=== PATIENT | female | born 1955 | race Caucasian/White ===

== ENCOUNTER 2025-05-12 09:14 | Day surgery (SDC) | payer MEDICARE, SELFPAY ==
[2025-05-08 15:00] VITALS: BMI 26.6
--- OUTSIDE RECORDS SUMMARY | 2025-05-11 19:33 | XMS_ITS | Patient Health Record ---
Author Organization [facility] Address [address] [place] [id number] Care Team Providers Care Medical Customer Service Representative Name Role Phone Ivy Jefferson M.D. Primary Care Provider Donte Mosqueda Jr Unavailable Allergies Allergen (clinical drug ingredient) Drug/Non Drug Allergy documented on EMR Reaction Allergy Type Onset Date Status seasonal (uncoded) Unknown Allergy A ctive Reason For Referral No Information Medications Medication SIG (Take, Route, Frequency, Duration) Notes Start Date End Date Status Simvastatin 10 MG 2 tablets in the evening Orally Once a day Active Multi Vitamin Daily Active hydroCHLOROthiazide 12.5 MG 1 capsule in the morning Orally Once a day Active Amoxicillin 500 MG 4 capsules Orally Prophylaxis for dental procedures Active Fluticasone Propionate 50 MCG/ACT 1 spray in each nostril Nasally Twice a day Active Magnesium 400 MG as directed Orally Active Vitamin D3 25 MCG (1000 UT) 1 tablet Ora lly Once a day Active Omeprazole 20 MG 1 capsule 1/2 to 1 hour before morning meal Orally Once a day Active amLODIPine Besylate 10 MG 1 tablet Orall y Once a day Active Immunizations Vaccine Route Administration Date Status Comme nts Influenza Unknown 05/13/2024 Administered Social History Tobacco Use: Social History Observation Description Date Details (start date - stop date) Never Smoker NA - NA Tobacco Control (Standard) Question Answer Notes Tobacco use: Nonsmoker AUDIT-C (Standard) Question Answer Notes Did you have a drink containing alcohol in the p ast year? No Points 0 Interpretation Negative Problems Problem Type SNOMED Code ICD Code Onset Dates Problem Status W/U Status Risk Notes Problem Colon cancer screening (839190193) Colon cancer screening (Z12.11) Active confirmed Problem Dysphagia (93453381) Dysphagia (R13.10) Active confirmed Problem Gastroesophageal reflux disease (058034105) Gastroesophageal reflux disease (K21.9) Active confirmed Problem Family history of polyp of colon (situation) (180534526) Family history of colon polyps, unspecified (Z83.719) Active confirmed Vital Signs Blood pressure diastolic 01 mm Hg 04/22/2025 Height 63 in 04/22/2025 Blood pressure systolic 001 mm Hg 04/22/2025 Weight 150 lbs 04/22/2025 BMI 26.57 kg/m2 04/22/2025 Encounters Encounter Location Date Provider Diagnosis [facility] [address] [place] [address] 10/10/2024 Donte Maloney Jr [facility] [address] [place] [phone] 04/22/2025 Donte Maloney Jr Dysphagia R13.10 ; Gastroesophageal reflux disease K21.9 ; Family history of colon polyps, unspecified Z83.719 and Colon cancer screening Z12.11 Assessments Encounter Date Diagnosis (ICD Code) Assessment Notes Treatment Notes Treatment Clinical Notes Section Notes 04/22/2025 Dysphagia (ICD-10 - R13.10) We discussed her symptoms today. We discussed gastroesophageal reflux disease. We discussed dysphagia. Some of her symptoms could be related to esophageal dysmotility since they have not been progressive. We recommended further evaluation with upper endoscopy because of her persistent symptoms despite omeprazole. She is due for screening colonoscopy and this will be arranged. We discussed risks and benefits of both procedures today. She understands and agrees to proceed. She is advised to stop hydrochlorothiazide the day before the procedure. 04/22/2025 Gastroesophageal reflux disease (ICD-10 - K21.9) We discussed her symptoms today. We discussed gastroesophageal reflux disease. We discussed dysphagia. Some of her symptoms could be related to esophageal dysmotility since they have not been progressive. We recommended further evaluation with upper endoscopy because of her persistent symptoms despite omeprazole. She is due for screening colonoscopy and this will be arranged. We discussed risks and benefits of both procedures today. She understands and agrees to proceed. She is advised to stop hydrochlorothiazide the day before the procedure. 04/22/2025 Family history of colon polyps, unspecified (ICD-10 - Z83.719) We discussed her symptoms today. We discussed gastroesophageal reflux disease. We discussed dysphagia. Some of her symptoms could be related to esophageal dysmotility since they have not been progressive. We recommended further evaluation with upper endoscopy because of her persistent symptoms despite omeprazole. She is due for screening colonoscopy and this will be arranged. We discussed risks and benefits of both procedures today. She understands and agrees to proceed. She is advised to stop hydrochlorothiazide the day before the procedure. 04/22/2025 Colon cancer screening (ICD-10 - Z12.11) We discussed her symptoms today. We discussed gastroesophageal reflux disease. We discussed dysphagia. Some of her symptoms could be related to esophageal dysmotility since they have not been progressive. We recommended further evaluation with upper endoscopy because of her persistent symptoms despite omeprazole. She is due for screening colonoscopy and this will be arranged. We discussed risks and benefits of both procedures today. She understands and agrees to proceed. She is advised to stop hydrochlorothiazide the day before the procedure. Plan Of Treatment Future Test Test Name Order Date UPPER GI ENDOSCOPY 04/22/2025 COLONOSCOPY 04/22/2025 Next Appt Details Provider Name:Donet gasca , 05/12/2025 12:00:00 PM, [address] [place] [address], [phone], Insurance Providers Payer Name Payer Address Payer Phone Subscriber Number Group Number Insured Name Patient Relationship to Insured Coverage Start Date Coverage End Date [facility] [address] [place], [place] [id number] Self - patient is the insured Medical (General) History Medical History History ICD Code Hypertension Hyperlipidemia Seasonal allergic rhinitis Gastroesophageal reflux disease Colonoscopy 2019 negative pe r patient, 5-year follow-up for family history of colon polyps Surgical History Surgery Date(Month/Year) cataracts x 2 partial removal of cervix bladder sling Laparoscopic cholecystectomy Left TKR
--- OUTSIDE RECORDS SUMMARY | 2025-05-11 19:33 | XMS_ITS | Clinical Summary ---
Author Organization [facility] Address [address] [place] [address] Care Team Providers Care Armature Varnisher Name Role Phone Ivy Jefferson MD Primary Care Provider [phone] Allergies No known active allergies Medications * This document contains information received from the source organization and may not represent a complete record from that organization. multivitamin capsule Take 1 capsule by mouth once a day. Active cholecalciferol 400 unit tablet Take 400 Units by mouth once a day. 023 Active amoxicillin (AMOXIL) 500 mg capsule Amoxicillin 2 gm prior to dental procedure 60 capsule 023 Active magnesium oxide 400 mg magnesium capsule Take 400 mg by mouth once a day. Every other day take one pill Active polyethylene glycol 3350 (MIRALAX) powder Take 17 g by mouth daily as needed for constipation. Mix powder in 4 to 8 oz of water, juice, coffee, or tea. 510 g 4 5:33 PM EDT 024 Active hydroCHLOROthiazide 12.5 mg tabletIndications:Essen tial (primary) hypertension Take 1 tablet (12.5 mg total) by mouth once a day. 90 tablet 3 024 Active omeprazole (PriLOSEC) 20 mg capsule TAKE 1 CAPSULE ONCE DAILY 90 capsule 3 025 Active amLODIPine-benazepriL (LOTREL) 10-40 mg per capsule TAKE 1 CAPSULE EVERY MORNING 90 capsule 3 025 Active fluticasone propionate (FLONASE) 50 mcg/actuation nasal spray USE 1 SPRAY IN EACH NOSTRILONCE DAILY 48 g 1 025 Active simvastatin (ZOCOR) 20 mg tabletIndications:Pure hypercholesterolemia Take 1 tablet (20 mg total) by mouth nightly. 90 tablet 3 025 2025 Active estradioL (ESTRACE) 0.01 % (0.1 mg/gram) vaginal creamIndications:Recurr ent UTI APPLY A PEA-SIZED AMOUNT INTO THE VAGINA 2 TIMES A WEEK 42.5 g 025 Active Active Problems Problem Noted Date Diagnosed Date Recurrent UTI 02/14/2024 Assessment & Plan (02/16/2025 9:20 AM EDT): 69-year-old 4 para 2-0-2-2 with history of recurrent UTIs. Since starting the vaginal estrogen, she has had no UTIs. Use of vaginal estrogen cream, insert pea-sized amount into the vagina twice weekly was reviewed. Refill sent to her pharmacy. Osteopenia 08/25/2020 Assessment & Plan (02/16/2025 9:20 AM EDT): DEXA study from 03/11/2024 showed a T-score of -0.4 at L1-L4 -2.1 in the femoral neck. DEXA will be repeated next year. Assessment & Plan (11/29/2020 9:13 AM EDT): Patient initially diagnosed with osteopenia In DEXA done in July 2018 with osteopenia of both femoral necks. Repeat DEXA scan on 11/22/2020 showed osteopenia without elevated fracture risk. Recommended to continue with daily calcium and vitamin D tablets for minimum of 1200 mg calcium and 800 units of vitamin D per day. Weightbearing exercise recommended. Assessment & Plan (08/25/2020 1:32 PM EST): DEXA 08/21/18: Osteopenia. Normal bone density of lumbar spine, osteopenia of both femoral necks. Repeat DEXA scan ordered. She is currently on calcium/D3 supplement. S/P rhinoplasty 11/27/2019 H/O total knee replacement, left 09/09/2019 Overview (09/09/2019): Uses amoxicillin 500 mg 4 tabs before dental procedures. Constipation 09/09/2019 Assessment & Plan (09/09/2019 12:57 PM EST): Uses Colace 200 mg daily regularly and MiraLAX at night as needed. Symptoms are controlled. Cataract cortical, senile 11/13/2013 Overview (09/09/2019): F/u w ophthalmology yearly, last in Mar 2019. Dr. Thompson Allergic rhinitis 09/26/2012 Overview (09/09/2019): Allergic to cat, dogs, and dust mites. Flonase PRN Hypertension 09/26/2012 Assessment & Plan (11/29/2020 9:15 AM EDT): Patient with history of blood pressure that was initially diagnosed in 1998. She is currently on amlodipine-benazepril 10-40 mg daily and HCTZ 12.5 mg daily. No dizziness. Her blood pressure is well controlled at 130/72. She has a sleep apnea and has been using oral appliances instead of CPAP machine recently which has improved her compliance and seems like has helped with her blood pressure control as well. Assessment & Plan (08/25/2020 1:29 PM EST): History of hypertension, blood pressure is currently well controlled on amlodipine 10-benazepril 40 and HCTZ 12.5 mg daily. Dizziness has resolved after reduction in HCTZ from 25 to 12.5 mg daily. Her blood pressure in the office was mildly elevated at 142/75 today but home blood pressure readings are all ranging in 100 110s over 50s to 70s. Possibly elevated blood pressure in the office versus sepsis related/whitecoat syndrome. We will repeat a BMP today. Follow-up in 6 months. Assessment & Plan (05/26/2020 11:16 AM EDT): HCTZ was discontinued on 04/28/2020 due to some episodes of lightheadedness and low blood pressures in 100-1 110s. Lightheadedness has improved. His home blood pressure readings are currently mildly elevated in 130-140s over 70s to 80s. We will continue amlodipine 10, benazepril 40 and will resume hydrochlorothiazide at a lower dose at 12.5 mg daily. Assessment & Plan (01/22/2020 9:07 AM EDT): On amlodipine 10, benazepril/HCTZ 40/25. Has tolerated the medication well without side effects. Blood pressure is ranging in 110-120s over 60-low 80s at max. We will check a BUN/creatinine for her. Recommend to continue monitoring her blood pressures at home frequently. Follow-up with her physical. Continue with same meds, low- salt diet and exercise. Assessment & Plan (10/23/2019 9:44 AM EST): BMP done on 10/20/2019 was unremarkable. Her blood pressures at home ranging in 120-130s over 70 to 80s mostly. There was a couple of readings of 110 and 140s overall. She has tolerated HCTZ well. She is currently taking amlodipine 10/benazepril 40 and hydrochlorothiazide 25 mg daily. Reports infrequent lightheadedness that happens once a day and does not last more than a few seconds. However, she is not sure if it is related to the change in blood pressure or because of the motion sickness since she was experiencing it in the car yesterday and also she has some sinus issues ongoing at this point that might contributed to the lightheadedness. Recommend to continue checking her blood pressures at home twice a day 2 days a week. Also recommended to inform us if experiences frequent lightheadedness episodes. Assessment & Plan (09/24/2019 8:59 AM EST): She has responded well to hydrochlorothiazide 12.5 mg daily without significant problems with urination. She is happy about the results. Her blood pressure at home ranges in 120-140s (150 in one reading) sys and 60 to 80s diastolic. Her blood pressure in the office today is 140/72. BMP is within normal limits. We discussed that we will increase the calculated to 25 mg daily and will continue with same dose of amlodipine benazepril. Repeat BMP in 4 weeks with follow-up visit. Patient is recommended to continue tracking her blood pressures at home. Assessment & Plan (09/09/2019 11:43 AM EST): Patient has elevated blood pressure in 150/80 in this visit and it seems like she had elevated blood pressure in her previous visits with ENT in 140-160s over 80s. She reports that she has had a hard time controlling her blood pressure in the past as well and her blood pressure medication dose was increased by safety administrator a few months ago. She is currently on amlodipine 10/benazepril 40. We Discussed trying a low-dose of diuretic and started her on HCTZ 12.5 mg daily. Patient is commended to monitor her blood pressures at home twice daily, right before the next scheduled dose and at night and document and we will follow-up with her blood pressure control in 2 weeks. BMP to be done 3 days prior to the visit. Esophageal reflux 09/26/2012 Overview (09/09/2019): EGD: gastritis, follows with GI, Dr. Maloney at [facility], on prilosec, sx controlled. Hyperlipidemia 09/26/2012 Assessment & Plan (11/29/2020 9:14 AM EDT): Jul 2020: The 10-year ASCVD risk score ([place] Jr., et al., 2013) is: 10.7% Values used to calculate the score: Age: 65 years Sex: Female Is Non- : No Diabetic: No Tobacco smoker: No Systolic Blood Pressure: 142 mmHg Is BP treated: Yes HDL Cholesterol: 69 mg/dL Total Cholesterol: 213 mg/dL Patient was a started on simvastatin 20 mg at night for elevated ASCVD risk greater than 10%. She has tolerated the medication without side effects. Repeat lipid panel prior to visit shows good cholesterol control. Plan to continue the same dose. Assessment & Plan (08/25/2020 1:28 PM EST): Patient with history of hyperlipidemia, not on any statins. We will repeat a fasting lipid profile. Patient will come back to the lab after 10-12 hours of fasting overnight. Obstructive sleep apnea 09/26/2012 Overview (09/09/2019): Central & obstructive, on CPAP. Used to follow-up with neurology, Dr. Quezada in the past. 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 Patient is also due for third dose of zoster live vaccine. Shingrix prescription provided to be taken at the pharmacy. 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 Iglesias, ENT on 10/30/2019 for repair. Assessment & Plan (01/22/2020 9:06 AM EDT): Had the surgery done with Dr. Iglesias on October 30, 2019 for repair. She is very happy with the results. Reports her symptoms have resolved. She has upcoming follow-up with Dr. Iglesias in January. Uses Flonase as needed. Assessment & Plan (10/23/2019 9:39 AM EST): Recommended to hold the HCTZ on the morning of the surgery. She can take amlodipine benazepril and Prilosec at morning. Nasal obstruction 09/09/2019 11/08/2020 Overview (10/20/2019): 05/01/2019: presented to ENT with severe bilateral progressive nasal obstruction occurring over 2 months. Associate with facial pain and pressure. She had tried Flonase, Augmentin and Bactrim with no relief. On exam her nasal cavities were obstructed by swelling of the anterior septum bilaterally. CT scan showed septal swelling anteriorly with gas within the septum itself. She underwent incision and drainage in the operating room on 05/06/2019. Pathology and cultures were consistent with a MRSA abscess treated with clindamycin postop. AFB stain and culture, fungus, and pathology were all negative. There is no concern from any sort of malignancy. She did have a history of septoplasty 40 years prior but no other sinonasal surgery. Currently: loss of septal cartilage in the middle 1/3 of the nose. Nasal obstruction, acquired deformity of nose, nasal valve collapse, acquired saddle nose deformity. Follows with ENT, Dr. Iglesias. has a surgery planned for 10/30/19. She was treated for myeloperoxidase antibody, proteinase 3 antibody, ANCA screen, and CRP which were all normal. BMI 25.0-25.9,adult 09/09/2019 01/11/20 23 Overview (09/09/2019): She reports losing about 25 pounds in the past 6 months through regular exercise including walking and elliptical and restricting her calorie intake using an karen on her phone. She is planning to continue the same to lose another about 5 to 10 pounds possibly. Assessment & Plan (01/22/2020 9:05 AM EDT): She reports that her weight has been steady. She is doing daily walks and trying to stay active. Assessment & Plan (10/23/2019 9:40 AM EST): Her BMI today is 24.98. She continues to watch her diet and have regular exercise by walking daily. She is afraid that she cannot do the regular exercise and walking for a while after the surgery. She has prepared some healthy food and chicken soup at home for the duration post surgery. Recommended to avoid salty food. Assessment & Plan (09/24/2019 9:02 AM EST): She has lost 3 more pounds since last visit. Her BMI today 24.98. Adult general medical exam 09/09/2019 0 01/10/2023 Overview (10/27/2019): Last physical done in Jul 2019. 08/07/2018: T chol 197, HDL 60, TG 148, LDL 111. Vitamin D, 25-hydroxy total 08/11/19: 42 TSH 06/11/2019: 4.38 Eye exam and dental exam in 2018. Mammogram B/L 08/04/19: NL, f/u 1 y Pap/ HPV on 08/13/2018: Neg, due in Jul 2021 DEXA 08/21/18: Osteopenia. Normal bone density of lumbar spine, osteopenia of both femoral necks. Colonoscopy 07/22/19: Normal. Repeat in 5 y because of Hx of polyps. Prevnar 13: 07/18/2016 PSP 23: 07/22/2018 Assessment & Plan (08/25/2020 1:28 PM EST): Patient feels safe at home and in relationship. Denies SI/HI. Depression screening negative. Has smokes detectors and fire alarms at home. Importance of sun screen use for sun exposure discussed with the patient. Seat belt use discussed with the patient. Healthy diet and regular exercise discussed with the patient. Patient reports excessive sun exposure as she works in the yard a lot and has multiple nevi, some with mild discoloration. Dermatology referral placed for evaluation. Screening labs ordered per USPSTF guidelines per age and gender group. Eye exam and dental exam in March 2020. Mammogram B/L 08/04/19: NL, f/u 1 y. Repeat mammogram ordered. Pap/ HPV on 08/13/2018: Neg, due in Jul 2021. DEXA 08/21/18: Osteopenia. Normal bone density of lumbar spine, osteopenia of both femoral necks. Repeat DEXA scan ordered. Colonoscopy 07/22/19: Normal. Repeat in 5 y because of Hx of polyps. Prevnar 13: 07/18/2016 PSP 23: 07/22/2018 Tdap last given on 09/24/2012, next due in 2022. Patient received her flu shot on 05/26/2020. Yearly flu shot advised. Covid vaccine advised. Patient reports getting her Shingrix vaccine in March and June 2020. She send us the records. History of positive PPD 09/09/201912/26 Overview (09/09/2019): QuantiFERON-TB gold test negative on 08/11/2019. Cough 01/08/2014 09/09/2019 Cataract, nuclear 11/13/2013 01/10/2023 Osteoarthritis of knee 07/11/201301/10 Overview (08/25/2020): Osteoarthritis of knee Synovial cyst of popliteal space 01/31/2013 01/10/2023 Overview (08/25/2020): Duggan's cyst Lateral epicondylitis 09/26/20122019 Asthma 09/26/2012 01/10/2023 Overview (09/09/2019): As a child. No inhaler use Assessment & Plan (08/25/2020 1:30 PM EST): Denies any recent asthma symptoms. Urinary frequency 09/26/2012 01/10/2023 Overview (09/09/2019): 2x sling, by urology, Dr. Curry. Wears pads. Has urge incontinence. Encounters Date Type Department Care Team Description 03/18/2025 Refill [facility] [address] [facility] [employer] Department [address] [facility] [address] [place] [address] Sharee Esqueda MD Recurrent UTI 03/16/2025 1:30 PM EDT Office Visit [facility] [address] [facility] Orthopedic Department [address] [facility] 1st [place] [address] Martha Caldera MD Acquired trigger finger of right middle finger (Primary Dx); Ganglion cyst of flexor tendon sheath of finger of right hand 03/10/2025 Orders Only [facility] [address] [place] [phone] Ivy Jefferson MD CKD stage 3a, GFR 45-59 ml/min (HCC) (Primary Dx) 03/06/2025 Results Follow-Up [facility] [address] [place] [address] Ivy Jefferson MD 03/05/2025 10:00 AM EDT Follow-Up [facility] [address] [place] [phone] Ivy Jefferson MD Hypertension (Primary Dx); Other hyperlipidemia; Stage 3a chronic kidney disease (HCC); Esophageal reflux 02/16/2025 9:00 AM EDT Follow-Up [address] [employer] Department [address] [place] [address] [address] [place] [address] Sharee Esqueda MD Recurrent UTI (Primary Dx); Osteopenia of necks of both femurs from Last 3 Months Immunizations Immunization Administration Dates Next Due COVID-19, Pfizer, mRNA, Biva lent Booster, PF, 30 mcg/0.3 mL dose (for age 12 y and up) 08/14/2022 Covid-19, Pfizer, mRNA, Henry valent, PF 30 mcg/0.3 mL dose (for ages 12 and older) 08/23/2021,12/01/2020,11/03/2020 Covid-19, Pfizer, mRNA, Oyng -sucrose Vaccine, PF, 30 mcg/0.3 mL (for age 12 y and up) 08/23/2023 INFLUENZA, SPLIT VIRUS, TRIVALENT, PF 05/26/2013 Influenza Virus Vaccine, Uns pecified Formulation 06/17/2019 Influenza, High Dose Seasona l, Preservative Free (FLUZONE HIGH-DOSE) 06/05/2024,05/28/2018 Influenza, High Dose Seasona l, Quadrivalent PF 06/14/2022,06/01/2021 Influenza, Injectable, Quadr ivalent Preservative Free 08/23/2023 Influenza, Injectable, Quadr ivalent, Contains Preservative 05/26/2020 Influenza, Injectable, Quadr ivalent, Preservative Free 06/04/2017 Influenza, Unspecified 06/14/2022,05/25/2021, Pneumococcal Conjugate Vaccine, 13 Valent 2015 Pneumococcal Polysaccharide Vaccine, 23 Valent 07/22/2018 RSV, Bivalent, Protein Subun it RSVpreF, Diluent Reconstituted, 0.5 mL, PF 06/05/2024 Tetanus Toxoid, Reduced Diph theria Toxoid, and Acellular Pertussis Vaccine, Adsorbed 09/02/2023,09/24/2012 Zoster Vaccine Recombinant 07/30/2020,05/26/2020 Zoster Vaccine, Live 03/10/2015 Family History Medical History Relation Name Comments No Known Problems Child No Known Problems Cousin No Known Problems Daughter 1 No Known Problems Daughter 2 Aneurysm Father Heart disease Father Other Father [place] 40's, quadru pal bypass 40's /AAA; lived till 87 y/o No Known Problems Grandchild No Known Problems Maternal Grandfather No Known Problems Maternal Grandmother Asthma Mother Cervical cancer Mother Coronary artery disease Mother s/p stents; at 89 y/o Diabetes Mother Heart failure Mother Hyperlipidemia Mother Hypertension Mother Other Mother Diabetes mellit us /CHF/Asthma /Hypertension Breast cancer Mother's Sister No Known Problems Other No Known Problems Paternal Grandfather No Known Problems Paternal Grandmother Diabetes Sister Hyperlipidemia Sister No Known Problems Son BRCA 1/2 Neg Hx Colon cancer Neg Hx Endometrial cancer Neg Hx Ovarian cancer Neg Hx Relation Name Status Comments Child Cousin Daughter 1 Alive Daughter 2 Alive Father (Age 80's) Grandchild Maternal Grandfather Maternal Grandmother Mother (Age 89) Mother's Sister Other Paternal Grandfather Paternal Grandmother Sister Son Social History Tobacco Use Types Packs/Day Years Used Date Smoking Tobacco: Former Cigarettes 1 30 0 05/05/1959 - 05/05/1989 Passive Smoke Exposure: Past Smokeless Tobacco: Never Tobacco Cessation:Counseling Given: Not Answered Alcohol Use Standard Drinks/Week Comments Yes 0 (1 standard drink = 0.6 oz pur e alcohol) occasional, rare, 1x per month Phonologics Utilities Answer Date Recorded In the past 12 months has th e electric, gas, oil, or water company threatened to shut off services in your home? No 09/05/2024 Hunger Vital Sign Answer Date Recorded Within the past 12 months, y ou worried that your food would run out before you got the money to buy more. Never true 09/05/19 25 Within the past 12 months, t he food you bought just didn't last and you didn't have money to get more. Never true 09/05/2024 Transportation Answer Date Recorded In the past 12 months, has l ack of reliable transportation kept you from medical appointments, meetings, work or from getting things needed for daily living? No 09/05/2024 Housing Answer Date Recorded Housing Risk Low 2 09/05/2024 Housing Risk Medium Not on file 09/05/2024 Housing Risk High Not on file 09/05/2024 What is your living situation today? LSSTEADY 09/05/2024 Comments No Sex and Gender Information Value Date Recorded Sex Assigned at Female 10/17/2019 7:41 AM EST Legal Sex Female 12:15 AM EDT Gender Identity Female 10/17/2019 7:41 AM EST Sexual Orientation Straight 10/17/2019 7: 41 AM EST Last Filed Vital Signs Vital Sign Reading Time Taken Comments Blood Pressure 138/78 03/05/2025 9:56 AM EDT Pulse 92 03/05/2025 9:56 AM EDT Temperature 36.4 C (97.5 F) 09/05/2024 10:20 AM EST Respiratory Rate 16 02/16/2025 8:59 AM EDT Oxygen Saturation 98% 03/05/2025 9:56 AM EDT Inhaled Oxygen Concentration - - Weight 70.8 kg (156 lb) 03/16/2025 1:05 PM EDT Height 162.6 cm (5' 4 ) 03/16/2025 1:05 PM EDT Body Mass Index 26.78 03/16/2025 1:05 PM EDT Plan of Treatment Upcoming Encounters Date Type Department Care Team (Late st Contact Info) Description 05/27/2025 10:20 AM EDT Office Visit [facility] [address] [place] [phone] Senior Sql Developer: Michelle Means MD [address] [place] [phone] 09/21/2025 10:20 AM EST Office Visit [facility] [address] [place] [phone] Ivy Jefferson MD [address] [place] [phone] 12/07/2025 10:15 AM EDT Appointment [facility] [address] [facility], 5th [place] [address] 03/18/2026 9:15 AM EDT Office Visit [address] [employer] Department [address] [place] [phone] Sharee Esqueda MD [address] [place] [phone] Health Maintenance Due Date Last Done Comments Colonoscopy 10/26/2024 10/27/2019, 06/28, 04/28/2014 Influenza Vaccine (#1) 2025 , 08/23/2023, 06/14/2022, Additional history exists Depression Screening and Follow-Up 09/03/2025 09/03/2024 [employer] Annual Screening 09/05/2025 09/05/2024 Mammogram 12/01/2025 12/01/2024, 10/26, 11/13/2022, Additional history exists Basic Metabolic Panel 03/05/2026 03/05/2025 , 12/02/2024, 09/05/2024, Additional history exists Urine Microalbumin 03/05/2026 03/05/2025 Pneumococcal Vaccine: 50+ Years Completed 07/22/2018, 07/18/2016 Zoster Vaccines Completed 07/30/2020, 04/29, 03/10/2015 Hepatitis C Screening Completed 08/31/2020 COVID-19 Vaccine Discontinued 08/23/2023, , 08/23/2021, Additional history exists DTaP,Tdap,and Td Vaccines Discontinued 09/02/2023, Osteoporosis Screening Completed , 11/22/2020, 11/22/2020, Additional history exists RSV Vaccine (60+ years old and patients) Completed 06/05/2024 Health Care Proxy Review Completed 025, 02/21/2024, 01/10/2023 Alcohol/Substance Use Screening Completed 02/26/2025 Hepatitis B Vaccines Aged Out No long er eligible based on patient's age to complete this topic Procedures * Due to [place] state law, this organization might not be sharing negative HIV tests. Procedure Name Priority Date/Time Associated Diagnosis Comments CA INJECT TENDON SHEATH/LIGAMENT Routine 03/16/2025 1:30 PM EDT Acquired trigger finger of right middle finger MICROALBUMIN, RANDOM URINE WITH CREATININE Routine 03/05/2025 10:36 AM EDT Stage 3a chronic kidney disease (HCC) COMPREHENSIVE METABOLIC PANEL Routine 03/05/2025 10:36 AM EDT Other hyperlipidemia Stage 3a chronic kidney disease (HCC) CBC AUTO DIFFERENTIAL Routine 03/05/2025 10:36 AM EDT Hypertension Stage 3a chronic kidney disease (HCC) CIRO BILATERAL SCREENING DIGITAL MAMMOGRAM WITH SAMY Routine 12/01/2024 10:27 AM EDT Breast cancer screening by mammogram Encounter for screening mammogram for malignant neoplasm of breast DEXA AXIAL AND TBS Routine 03/11/2024 8: 42 AM EDT Asymptomatic menopausal state HEPATITIS C ANTIBODY W/REFLEX TO HCV RNA, QUANTITATIVE PCR Routine 08/31/2020 8:55 AM EST Adult general medical exam HM COLONOSCOPY Routine 10/27/2019 from Last 3 Months or Most Recently Relevant to Health Maintenance Results * Due to [place] state law, this organization might not be sharing negative HIV tests. * CA INJECT TENDON SHEATH/LIGAMENT (03/16/2025 1:30 PM EDT) Narrative Martha Caldera MD - 03/16/2025 1:30 PM EDT Martha Caldera MD 03/24/2025 7:34 AM Injection Tendon, Ligament, or Aponeurosis Indication(s): Trigger finger Date/Time: 03/16/2025 1:30 PM Performed by: Martha Caldera MD Authorized by: Martha Caldera MD Consent: Patient identity confirmed: Name and with patient and Verbally Verbal consent obtained: Yes Written consent obtained: Yes Risk and benefits discussed: Yes Written informed consent was obtained from the patient. Patient states understanding of procedure being performed: Yes Patient's understanding of procedure matches consent: Yes [place] Protocol: Procedure consent matches procedure scheduled: Yes All relevant documents/tests are correctly identified, labeled, and matched to patient: Yes Relevant tests/ Imaging studies available/reviewed: Yes Correct site marked: Yes Required blood products, implants, devices and special equipment available: N/A Immediately prior to the procedure a time out was called: Yes An attending physician was present for the procedure OR the procedure was performed by an Advanced Practice Provider: Yes Procedure Details: Location: finger - R middle finger flexor tendon Site Prep: Alcohol Tissue Type: tendon sheath Topical Anesthetic: ethyl chloride (cold spray) Syringe Size:3 mL Needle size: 25 G Approach: anterior Medications administered: 0.5 mL lidocaine PF 1% (10 mg/mL); 40 mg methylPREDNISolone acetate 40 mg/mL Dressing: Band-Aid Post-procedure Details: Patient tolerance: patient tolerated the procedure well with no immediate complications Instructions: post-procedure instructions were reviewed Discharge: patient discharged from clinic in stable condition Martha Caldera MD IN CLINIC/BEDSIDE ORDERABLE S Final Result * CBC Auto Differential (03/05/2025 10:36 AM EDT) [facility] White Blood Cell Count 10.6 3.8 - 10.8 Thousand/ uL 03/05/2025 9:36 PM [employer] Red Blood Cell Count 4.64 3.80 - 5.10 Million/u L 03/05/2025 9:36 PM [employer] Hemoglobin 13.8 11.7 - 15.5 g/dL 03/05/2025 9:36 PM [employer] Hematocrit 42.2 35.0 - 45.0 % 03/05/2025 9:36 PM [employer] MCV 90.9 80.0 - 100.0 fL 03/05/2025 9:36 PM [employer] MCH 29.7 27.0 - 33.0 pg 03/05/2025 9:36 PM [employer] MCHC 32.7 32.0 - 36.0 g/dL 03/05/2025 9:36 PM [employer] Comment: For adults, a slight decrease in the calculated MCHC value (in the range of 30 to 32 g/dL) is most likely not clinically significant; however, it should be interpreted with caution in correlation with other red cell parameters and the patient's clinical condition. RDW 12.9 11.0 - 15.0 % 03/05/2025 9:36 PM EDT [facility] Platelet Count 291 140 - 400 Thousand/ uL 03/05/2025 9:36 PM EDPT [employer] MPV 9.7 7.5 - 12.5 fL 03/05/2025 9:36 PM EDT [facility] Absolute Neutrophils 6,339 1,500 - 7,800 cells/uL 03/05/2025 9:36 PM EDT [facility] Absolute Lymphocytes 3,381 850 - 3,900 cells/uL 03/05/2025 9:36 PM EDT [facility] Absolute Monocytes 721 200 - 950 cells/uL 03/05/2025 9:36 PM EDT [facility] Absolute Eosinophils 95 15 - 500 cells/uL 03/05/2025 9:36 PM EDT [facility] Absolute Basophils 64 0 - 200 cells/uL 03/05/2025 9:36 PM EDT [facility] Neutrophils 59.8 % 03/05/2025 9:36 PM EDT [facility] Lymphocytes 31.9 % 03/05/2025 9:36 PM EDT [facility] Monocytes 6.8 % 03/05/2025 9:36 PM EDT [facility] Eosinophils 0.9 % 03/05/2025 9:36 PM EDT [facility] Basophils 0.6 % 03/05/2025 9:36 PM EDT [facility] Blood Structure of peripheral vein / Unknown 03/05/2025 10:36 AM EDT 03/05/2025 3:34 PM EDT Narrative [facility] - 03/05/2025 9:38 PM EDT FASTING:NO us Ivy Jefferson MD LAB BLOOD ORDERABLES Final Re sult [facility] [address], [place] [address], [facility] [address] [place] [address] * Microalbumin, Random Urine with Creatinine (03/05/2025 10:36 AM EDT) Creatinine, Random Urine 24 20 - 275 mg/dL 03/05/2025 6:53 PM EDT [facility] Microalbumin <0.2 mg/dL 03/05/2025 6:53 PM EDT [employer] [facility] Comment: Reference Range Not established Microalbumin/Crea tinine Ratio, Random Urine NOTE <30 mg/g creat 03/05/2025 6:53 PM EDT [employer] [facility] Comment: NOTE: The urine albumin value is less than 0.2 mg/dL therefore we are unable to calculate excretion and/or creatinine ratio. The ADA defines abnormalities in albumin excretion as follows: Albuminuria Category Result (mg/g creatinine) Normal to Mildly increased <30 Moderately increased 30-299 Severely increased > OR = 300 The ADA recommends that at least two of three specimens collected within a 3-6 month period be abnormal before considering a patient to be within a diagnostic category. Urine Voided urine specimen / Unknown 03/05/2025 10:36 AM EDT 03/05/2025 4:10 PM EDT Narrative [facility] - 03/05/2025 9:38 PM EDT FASTING:NO Ivy Jefferson MD LAB URINE ORDERABLES Final Re sult [facility] [address], [place] [address], [facility] [facility] [address] [place] [address] * (ABNORMAL) Comprehensive Metabolic Panel (03/05/2025 10:36 AM EDT) [facility] Glucose 88 65 - 139 mg/dL 03/05/2025 4:59 PM EDT [facility] [facility] Comment: Non-fasting reference interval BUN 25 7 - 25 mg/dL 03/05/2025 4:59 PM EDT [facility] [facility] Creatinine 1.20(H) 0.60 - 1.00 mg/dL 03/05/2025 4:59 PM EDT [employer] [facility] eGFR 48(L) > OR = 60 mL/min/1. 73m2 03/05/2025 4:59 PM EDT [facility] Bun/Creatinine Ratio 21 6 - 22 (calc) 03/05/2025 4:59 PM EDT [facility] Sodium 137 135 - 146 mmol/L 03/05/2025 4:59 PM EDT [employer] [facility] Potassium 4.6 3.5 - 5.3 mmol/L 03/05/2025 4:59 PM EDT [facility] Chloride 99 98 - 110 mmol/L 03/05/2025 4:59 PM EDT [facility] Carbon Dioxide 28 20 - 32 mmol/L 03/05/2025 4:59 PM EDT [facility] Calcium 10.0 8.6 - 10.4 mg/dL 03/05/2025 4:59 PM EDT [facility] Protein, Total 7.3 6.1 - 8.1 g/dL 03/05/2025 4:59 PM EDT [facility] Albumin 4.7 3.6 - 5.1 g/dL 03/05/2025 4:59 PM EDT [facility] Globulin 2.6 1.9 - 3.7 g/dL (calc) 03/05/2025 4:59 PM EDT [facility] Albumin/Globuli n Ratio 1.8 1.0 - 2.5 (calc) 03/05/2025 4:59 PM EDT [facility] Bilirubin, Total 0.4 0.2 - 1.2 mg/dL 03/05/2025 4:59 PM EDT [facility] Alkaline Phosphatase 93 37 - 153 U/L 03/05/2025 4:59 PM EDT [facility] AST 24 10 - 35 U/L 03/05/2025 4:59 PM EDT [facility] ALT 24 6 - 29 U/L 03/05/2025 4:59 PM EDT [facility] Blood Structure of peripheral vein / Unknown 03/05/2025 10:36 AM EDT 03/05/2025 4:06 PM EDT Narrative [facility] - 03/05/2025 9:38 PM EDT FASTING:NO us Ivy Jefferson MD LAB BLOOD ORDERABLES Final Re sult [facility] [address], [place] [address], [place] [phone] [facility] [address] [place] [address] * CIRO Bilateral Screening Digital Mammogram With Samy (12/01/2024 10:27 AM EDT) Anatomical Region Laterality Modality Breast Bilateral Mammography Narrative 12/10/2024 1:47 PM EDT Maureen Rhoades Exam Date: 12/01/24 [facility] [address] [place] [address], 5th floor [place], [place] [address] EXAMINATION CIRO Bilateral Screening Digital Mammogram With Samy. INDICATION Maureen Rhoades is a 69 y.o. female and is seen for: CIRO Bilateral Screening Digital Mammogram With Samy. CC and MLO views were obtained. FDA approved [employer] AI (artificial intelligence) software and R2 CAD were used as a concurrent reading aid in the interpretation of this study. COMPARISON Compared to: 11/21/2023 CIRO Bilateral Screening Digital Mammogram With Samy, 11/13/2022 CIRO Bilateral Screening Digital Mammogram With Samy, 11/08/2021 CIRO Bilateral Screening Digital Mammogram With Samy, and 09/14/2020 CIRO Bilateral Screening Digital Mammogram With Samy Bilateral Breast Findings: There are scattered areas of fibroglandular density. No significant masses, calcifications or other abnormalities are seen. IMPRESSION BI-RADS ATLAS category (overall): 1 - Negative MANAGEMENT Routine Screening Mammogram in 1 Year is recommended for bilateral. The patient was entered into a reminder system with a target date for their next mammogram. Patient has a TYRER CUZICK RISK ASSESSMENT SCORE of Tyrer-Cuzick: 4.34%. If the personal lifetime risk is more than 20%, according to ACS, NCCN and ACR guidelines, annual screening breast MRI is recommended in addition to annual mammography. If this radiology report contains a blank impression section, it is an incomplete radiology report. Please contact the interpreting radiologist or applicable radiology division as soon as possible to obtain the completed interpretation. Izabel Mar MD Resulting Agency Comment [id number] us Ivy Jefferson MD IMG BI PROCEDURES Final Resul t * DXA Axial and TBS (03/11/2024 8:42 AM EDT) Anatomical Region Laterality Modality Bone Densitometr y 03/11/2024 11:5 8 AM EDT Impressions 03/11/2024 11:59 AM EDT This patient has osteopenia. If this radiology report contains a blank impression section, it is an incomplete radiology report. Please contact the interpreting radiologist or applicable radiology division as soon as possible to obtain the completed interpretation. Workstation ID: [id number] Narrative 03/11/2024 11:59 AM EDT EXAM: BONE MINERAL DENSITY INDICATION: Post-Menopausal State Z78.0 - I10 - Asymptomatic menopausal state PROCEDURE: The bone mineral density (BMD) of the spine and proximal left femur was determined using an external X-ray source([employer]). SITE: [facility] FINDINGS: L1-L4: BMD 1.005 gm/cm2 T-Score -0.4 Z-score: 1.8 Femoral neck: BMD 0.613 gm/cm2 T-Score -2.1 Z-score: -0.3 Total hip: BMD 0.849 gm/cm2 T-Score -0.8 Z-score: 0.8 10-year Fracture Risk (FRAX) Major osteoporotic fracture 12% Hip fracture 2.5 % The World Health Organization (WHO) defines osteoporosis (as studied in post-menopausal women) as a T value of (-)2.5 or less at any site. Osteopenia is defined by a T value between (-)1.1 and (-)2.4. In general, it is recommended that patients receive approximately 1000 mg of calcium daily, either from dairy products or supplements (including multiple vitamin). Patients should consider supplementing with vitamin D. Vitamin D recommendations should be discussed with Health Care Provider and measurement of vitamin D levels should be considered. Careful weight-bearing exercise is also useful in maintaining bone mass and to help protect against falls. Trabecular bone score (TBS) L1-L4: TBS 1.333 T-Score -0.4 Z-score: 0.8 (normal microarchitecture: >1.31; degraded: <1.24) Resulting Agency Comment [id number] Procedure Note Elisha Jarrett MD - 03/11/2024 EXAM: BONE MINERAL DENSITY INDICATION: Post-Menopausal State Z78.0 - I10 - Asymptomatic menopausalstate PROCEDURE: The bone mineral density (BMD) of the spine and proximal leftfemur was determined using an external X-ray source([employer]). SITE: [facility] FINDINGS: L1-L4: BMD 1.005 gm/cm2 T-Score -0.4 Z-score: 1.8 Femoral neck: BMD 0.613 gm/cm2 T-Score -2.1 Z-score: -0.3 Total hip: BMD 0.849 gm/cm2 T-Score -0.8 Z-score: 0.8 10-year Fracture Risk (FRAX) Major osteoporotic fracture 12% Hip fracture 2.5 % The World Health Organization (WHO) defines osteoporosis (as studied inpost-menopausal women) as a T value of (-)2.5 or less at any site.Osteopenia is defined by a T value between (-)1.1 and (-)2.4. In general, it is recommended that patients receive approximately 1000 mgof calcium daily, either from dairy products or supplements (includingmultiple vitamin). Patients should consider supplementing with vitamin D.Vitamin D recommendations should be discussed with Health Care Providerand measurement of vitamin D levels should be considered. Carefulweight-bearing exercise is also useful in maintaining bone mass and tohelp protect against falls. Trabecular bone score (TBS) L1-L4: TBS 1.333 T-Score -0.4 Z-score: 0.8 (normalmicroarchitecture: >1.31; degraded: <1.24) IMPRESSION: This patient has osteopenia. If this radiology report contains a blank impression section, it is anincomplete radiology report. Please contact the interpreting radiologistor applicable radiology division as soon as possible to obtain thecompleted interpretation. Workstation ID: [id number] Sharee Esqueda MD [facility] DXA PROCEDURES Final Result * Hepatitis C Antibody w/Reflex to HCV RNA, Quantitative PCR (08/31/2020 8:55 AM EST) Hepatitis C Antibody NON-REACT JESSIE NON-REACT JESSIE 08/31/2020 6:48 PM EST [facility] Signal To Cut-Off 0.01 <1.00 08/31/2020 6:48 PM EST [facility] Comment: HCV antibody was non-reactive. There is no laboratory evidence of HCV infection. In most cases, no further action is required. However, if recent HCV exposure is suspected, a test for HCV RNA (test code 32071) is suggested. For additional information please refer to http://education.[employer]/faq/OEO46z6 (This link is being provided for informational/ educational purposes only.) Blood Structure of peripheral vein / Unknown 08/31/2020 8:55 AM EST 08/31/2020 4:03 PM EST Narrative [facility] - 08/31/2020 7:01 PM EST FASTING:YES us Nida Ha MD LAB BLOOD ORDERABLES Final Result [facility] [address] [facility] [facility] [address], [place] [address], [place] [phone] [facility] [address] [place] [address] * HM Colonoscopy (10/27/2019) us Unknown Provider HEALTH MAINTENANCE Final Res ult from Last 3 Months or Most Recently Relevant to Health Maintenance Additional Health Concerns Infection Onset Date Last Indicated 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 05/06/2019 Insurance BCBS MCR REPLACE PPO Advance Directives Documents on File Type Date Recorded Patient Neurosurgery Research Director Expl anation Health Care Proxy 03/05/2025 9:52 AM Healt h Care Proxy MOLST/POLST 09/05/2024 10:59 AM MOLST Health Care Proxy 02/28/2022 8:12 AM Health Care Proxy * Presumed Full Code (Latest Code Status on File) Date Activated Date Inactivated Comments 12/04/2023 11:07 AM 12/04/2023 9:27 PM * Presumed Full Code Date Activated Date Inactivated Comments 10/30/2019 6:22 AM 10/31/2019 11:33 AM * Presumed Full Code Date Activated Date Inactivated Comments 05/06/2019 8:13 AM 05/06/2019 3:54 PM Care Teams Armature Varnisher Relationship Specialty Start Date End Date Ivy Jefferson MD [address] [place] [phone] PCP - General Internal Medicine 12/28/22
--- OUTSIDE RECORDS SUMMARY | 2025-05-11 19:33 | XMS_ITS | Clinical Summary ---
Author Organization [facility] Address [address] [place] [address] Phone Care Team Providers Care Signals Collection Technician Name Role Phone Unknown, Unknown Primary Care Provider Orlando Germain MD Unavailable Allergies No known active allergies Medications omeprazole (PRILOSEC) 20 MG capsule Take 20 mg by mouth. 06/03/2020 Active naproxen (NAPROSYN) 500 MG tablet Take 500 mg by mouth. Active fluticasone propionate (FLONASE) 50 mcg/actuation nasal spray 1 spray by Nasal route. Active amLODIPine-ankit zepril (LOTREL) 10-40 mg per capsule 06/03/2020 Active bujnnyst-xza-wo xr-AJ-qhuxjx 8 mg iron-400 mcg-300 mcg Tab Take 1 tablet by mouth. Active simvastatin (ZOCOR) 20 MG tablet Take 20 mg by mouth nightly at bedtime. 09/19/2022 Active magnesium oxide 400 mg magnesium Cap Take 400 mg by mouth. Active cholecalciferol (VITAMIN D3) 400 unit tablet 400 Units. 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 Not on ramin e 12/22/2022 Are you concerned about learning? Not on file 12/22/2022 No 12/22/2022 No 12/22/2022 Digital Access Answer Date Recorded No 01/20/2023 No 01/20/2023 Reliable internet access at home? Not on file 01/20/2023 Device with a working camera? Not on file Comments Unknown Sex and Gender Information Value Date Recorded Sex Assigned at Female 07/19/2020 10:18 AM EST Legal Sex Female 1:27 PM EST Gender Identity Not on file Sexual Orientation Not on file Last Filed Vital Signs Vital Sign Reading Time Taken Comments Blood Pressure 163/84 07/11/2013 10:40 AM EST Pulse 78 07/11/2013 10:40 AM EST Temperature 36.6 C (97.9 F) 10/18/2023 10:09 AM EST Respiratory Rate - - Oxygen Saturation - - Inhaled Oxygen Concentration - - Weight 69.9 kg (154 lb) 10/18/2023 10:09 AM EST Height 160 cm (5' 3 ) 10/18/2023 10:09 AM EST Body Mass Index 27.28 10/18/2023 10:09 AM EST Plan of Treatment Health Maintenance Due Date Last Done Comments Adult Td,Tdap Booster 1953 DEPRESSION SCREENING 1965 SMOKING Hx and SMOKELESS TOBACCO SCREENING 1966 COLOGUARD 1998 COLONOSCOPY 1998 COLORECTAL CANCER SCREENING 1998 FIT TEST 1998 FOBT 1998 SIGMOIDOSCOPY 1998 VIRTUAL COLONOSCOPY 1998 CREATININE LEVEL 07/05/2011 07/05/2010, 06/22/2010 POTASSIUM LEVEL 07/05/2011 07/05/2010, 03/2010, 06/22/2010 ZOSTER VACCINES (2 of 2) 07/21/2020 05/26/2020 MAMMOGRAM 11/13/2024 11/13/2022, 10/25, 09/14/2020 INFLUENZA VACCINE (#1) 2025 0, 06/17/2019, 05/28/2018, Additional history exists COVID-19 VACCINE (3 - 2024- season) 2025 12/01/2020, 11/03/2020 RSV VACCINE (1 - 1-dose 75+ series) 2028 LIPID PANEL 08/22/2028 08/22/2023, 07/28, 02/28/2022, Additional history exists PNEUMOCOCCAL VACCINES (50+ years) Completed 07/22/2018, 07/18/2016 HEPATITIS C SCREENING Completed 08/31/2020 OSTEOPOROSIS SCREENING INITIAL (ONE-TIME) Completed 11/22/2020, 08/21/2018 HEPATITIS A VACCINES Aged Out No long er eligible based on patient's age to complete this topic HIB VACCINES Aged Out No longer eligi ble based on patient's age to complete this topic MENINGOCOCCAL VACCINES (ACWY) Aged Out No longer eligible based on patient's age to complete this topic MENINGOCOCCAL VACCINES (B) Aged Out N o longer eligible based on patient's age to complete this topic Medical Devices Not on file Procedures Procedure Name Priority Date/Time Associated Diagnosis Comments HISTORICAL LAB Routine 07/05/2010 8:00 AM EST from Last 3 Months or Most Recently Relevant to Health Maintenance Results * (ABNORMAL) Historical Lab (07/05/2010 8:00 AM EST) SODIUM 135(Abnorm ally L) 136 - 145 MMOL/L [facility] POTASSIUM 4.0 3.5 - 5.1 MMOL/L [facility] CHLORIDE 101 98 - 107 MMOL/L [facility] TOTAL CO2 25 22 - 29 MMOL/L [facility] ANION GAP 10 3 - 15 [facility] NITROGEN 8 6 - 20 MG/DL [facility] CREATININE 0.56 0.5 - 0.95 MG/DL [facility] eGFR > 60 >60 ML/MIN [facility] Comment: REFERENCE RANGE: 60 and above: mL/min/1.73 sq meters If patient is , GFR result must be multiplied by 1.21 GLUCOSE 124(Abnorm ally H) 70 - 115 MG/DL [facility] CALCIUM 9.1 8.6 - 10.6 MG/DL [facility] 07/05/2010 8:00 AM EST 07/05/2010 8:18 AM EST us Conversion Provider Not In Sys LAB BLOOD ORDERAB LES Final Result Performing Organization Address City/State/[facility] Co de Phone Number [address] [phone] from Last 3 Months or Most Recently Relevant to Health Maintenance Insurance MEDICARE PPO BLUE REPLACEMENT [facility] MEDICARE PPO BLUE REPLACEMENT MEDICARE PPO BLUE REPLACEMENT MEDICARE PPO BLUE RE[place]AC[place] BLUE REPLACEMENT Care Teams Signals Collection Technician Relationship Specialty Start Date End Date Unknown, Unknown, MD PCP - General 07/06/20 Orlando Garcia MD [address] [place] [address] 07/06/20 Additional Source Comments The information contained in this document represents components of the legal health record. It is not the complete legal health record.[facility]
[2025-05-12 10:40] VITALS: BP 122/61; PULSE 75; RESP 16; TEMP 36.5; O2SAT 95
[2025-05-12] MEDS: Lactated Ringers 1,000 ML 80 ML IVCONT (10:52)
--- NOTE | 2025-05-12 10:56 | HO.ANESPROP2 ---
[facility] Past Medical History Medical History Obstructive sleep apnea GERD (gastroesophageal reflux disease) Allergic rhinitis Hyperlipidemia HTN (hypertension) Surgical History Surgical History Hx of bladder repair surgery Hx of cataract extraction Hx of cholecystectomy History of total left knee replacement H/O colonoscopy History of Problems with Anesthesia: No Social History Social History Are you a primary manager progressive care to a significant other at home: No Do you presently have visiting nurse or other home services: No Patient Tobacco Use Status: Never used Tobacco Second Hand Smoke Exposure: No Use of substances other than those prescribed or required for medical reasons: No Have you been hit, kicked, punched, or otherwise hurt by someone within the past year? If so, by whom?: No Are you DNR?: No Advance Directives: No Advance Directives Information Provided: Yes Advance Directives on File: No Patient : No : No Poor oral hygiene: No Meds Allergies Allergy/AdvReac Type Severity Reaction Status Date / Time Seasonal Allergies Allergy Unknown Verified 05/08/25 14:55 Active Medications: Current Medications Lactated Ringer's (Lr) 1,000 mls @ 80 mls/hr IVCONT .[id number] KERRY Last Admin: 05/12/25 10:52 Dose: 80 mls/hr Home Medications ?Medication ?Instructions ?Recorded ?Confirmed ?Last Taken ?Type amlodipine 10 mg tablet 10 mg PO DAILY 05/08/25 05/12/25 05/12/25 History amoxicillin 500 mg capsule 2,000 mg PO ONCE 05/08/25 05/12/25 Unknown History cholecalciferol (vitamin D3) 25 25 mcg PO DAILY 05/08/25 05/12/25 Unknown History mcg (1,000 unit) capsule (Vitamin D3) fluticasone propionate 50 1 spray intranasal BID 05/08/25 05/12/25 Unknown History mcg/actuation nasal spray,suspension hydrochlorothiazide 12.5 mg tablet 12.5 mg PO DAILY 05/08/25 05/12/25 Unknown History magnesium oxide 400 mg PO DAILY 05/08/25 05/12/25 Unknown History multivitamin 1 tab PO DAILY 05/08/25 05/12/25 Unknown History omeprazole 20 mg capsule,delayed 20 mg PO DAILY 05/08/25 05/12/25 05/12/25 History release simvastatin 20 mg tablet 20 mg PO BEDTIME 05/08/25 05/12/25 Unknown History Exam Height,Weight and Vital Signs: Height 5 ft 3 in Weight 68.039 kg Last Vital Signs Temp 97.7 F 05/12/25 10:40 Pulse 75 05/12/25 10:40 Resp 16 05/12/25 10:40 BP 122/61 05/12/25 10:40 Pulse Ox 95 05/12/25 10:40 O2 Del Method Room Air 05/12/25 10:40 Airway Mallampati Class: II TM Dist: >3cm Neck ROM: Full Loose/Missing/Broken Teeth: No Heart: RRR Lungs: CTA Assessment and Plan Assessment Anesthesia Assessment: Anesthesia Plan Discussed and Chart Reviewed Final Anesthetic Review History of Problems with Anesthesia: No NPO: Yes ASA Class: III Final Preanesthetic Review: Meds/Allgs Chart Reviewed, Consent Obtained/Reviewed and Anes Risks/Benef Reviewed Patient Risk: Intermediate Procedure Risk: Intermediate Anesthetic Plan Anesthetic Plan: MAC: Disposition: Standard PACU
--- NOTE | 2025-05-12 11:56 | MHC.SHP ---
Pre-Procedural Eval Section A - 24 Hr Update-Section A only Date of Service: 05/12/25 The patient is an INPATIENT: No Changes since office visit: No Cold of Flu in the past 2 weeks, No New Medical Problems, No Changes in Medication and No Patient answered all questions The patient has been examined within 24 hours of the surgical procedure. The History & Physical has been completed within 30 days and I have reviewed it.: Yes Section B - Complete if H&P > 30 days Chief Complaint: screening,gerd,dysphagia,hx of polyps Allergies: Allergies Allergy/AdvReac Type Severity Reaction Status Date / Time Seasonal Allergies Allergy Unknown Verified 05/08/25 14:55 Plan I have reviewed the history and physical and performed a pertinent physical examination on my patient. No changes have occurred unless specified. Time Spent With Patient Time: Total time managing care of this patient today ____ minutes.
[2025-05-12 12:55] VITALS: BP 92/54; PULSE 71; RESP 12; TEMP 36.1; O2SAT 97
[2025-05-12 13:10] VITALS: BP 118/59; PULSE 65; RESP 18; TEMP 36.6; O2SAT 98
--- NOTE | 2025-05-12 13:18 | OP_ITS ---
DATE OF SERVICE: 05/12/2025 SURGEON: Donte Maloney MD INDICATIONS: 1. Dysphagia. 2. Colon cancer screening. PREOPERATIVE DIAGNOSIS: POSTOPERATIVE DIAGNOSIS: PROCEDURE PERFORMED: Upper endoscopy with biopsy, colonoscopy to the cecum. ESTIMATED BLOOD LOSS: COMPLICATIONS: ANESTHESIA: Monitored anesthesia care. ASSISTANTS: SPECIMENS: DESCRIPTION OF PROCEDURE: A history and physical was performed. The risks and benefits of the procedure were explained to the patient. Informed consent was obtained. The patient was placed in the left lateral decubitus position. The Olympus video gastroscope was introduced into the esophagus, stomach, and duodenum. Examination was performed. The scope was removed. She was repositioned for colonoscopy. A digital rectal exam was performed and was found to be normal. The Olympus pediatric video colonoscope was introduced into the rectum and advanced to the cecum. The cecum was identified by transillumination, palpation, and identification of ileocecal valve. Examination was performed. The scope was removed. She tolerated both procedures well and was returned to the recovery area in stable condition. FINDINGS: Upper endoscopy: 1. Esophagus: The esophagus was normal. Biopsies were obtained from the esophagus. 2. Stomach: The stomach showed several benign-appearing gastric polyps, measuring less than 10 mm. Biopsies were obtained from the polyps. Antral biopsies were also obtained. 3. Duodenum: The bulb and 2nd portion were normal. Colonoscopy: The terminal ileum was not examined. The visualized colonic mucosa was within normal limits without evidence of masses or ulcers. No polyps were identified. The quality of the prep was good. Retroflexed examination showed some small internal hemorrhoids. IMPRESSION: 1. Normal upper endoscopy. 2. Normal colonoscopy. RECOMMENDATION: 1. Follow up as needed. 2. Follow up the biopsy results. 3. Repeat colonoscopy is recommended in 10 years for average-risk individuals. MD DEVEN Polanco/ABRAHAML / [id number]
== END 2025-05-12 13:33 | disposition home or self-care (01) ==
PROVIDERS: PCP Internal Medicine; Visit Provider Internal Medicine Gastroenterology
PROC: (CPT 43239; principal; 2025-05-12 12:00)
DX: Z12.11 Encounter for screening for malignant neoplasm of colon (principal); K64.8 Other hemorrhoids; Z83.719 Family history of colon polyps, unspecified; K21.9 Gastro-esophageal reflux disease without esophagitis; R13.10 Dysphagia, unspecified; K31.7 Polyp of stomach and duodenum; K31.89 Other diseases of stomach and duodenum; I10 Essential (primary) hypertension; E78.5 Hyperlipidemia, unspecified; G47.33 Obstructive sleep apnea (adult) (pediatric); Z79.02 Long term (current) use of antithrombotics/antiplatelets; Z79.899 Other long term (current) drug therapy
CPT/HCPCS: 43239; G0105; 88305; 88342; J2003; J2704